=== PATIENT | female | born 1970 | race Asian ===

== ENCOUNTER 2019-01-09 22:30 | Emergency (ER) | payer BC ==
[~2019-01-09] VITALS: Ht 154.9 cm; Wt 68.3 kg
[2019-01-10 00:46] VITALS: BP 125/77
== END 2019-01-10 02:24 | disposition home or self-care (01) ==
LOC: ED 23:11
DX: T78.00XA Anaphylactic reaction due to unspecified food, initial encounter (principal)
CPT/HCPCS: 36415; 71045; 80048; 82040; 84703; 85025; 93005; 94640; 96372; 96374; 96375; 99284; J0171; J1200; J2930; J3490; J7613